=== PATIENT | male | born 1990 | race Caucasian/White ===

== ENCOUNTER → 2025-04-11 10:19 | Outpatient (BNVA) | payer OTHER, SELFPAY | PROVIDERS: PCP Nurse Practitioner Family; Visit Provider Nurse Practitioner Family | DX: R53.83 Other fatigue (principal) | CPT/HCPCS: 80053; 80061; 82306; 82607; 83735; 84443; 85025 ==

== ENCOUNTER 2025-05-04 05:53 | Day surgery (SDC) | payer OTHER, SELFPAY ==
[2025-05-04] VITALS (10 sets, daily range): BP systolic 96–128; BP diastolic 59–84; PULSE 58–69; RESP 16–20; TEMP 36.3–36.8; O2SAT 95–98; BMI 29.4
--- NOTE | 2025-05-04 06:47 | ANES.PREANE2 ---
Pre-Anesthetic Assessment Height/Weight: Height 1.78 m Weight 92.986 kg Temp Pulse Resp BP Pulse Ox O2 Del Method 98.3 F 67 17 128/84 98 Room Air 05/04/25 06:12 05/04/25 06:12 05/04/25 06:12 05/04/25 06:12 05/04/25 06:12 05/04/25 06:12 Operation Date: 05/04/25 07:00 Proposed Procedures p LEFT Open Inguinal Hernia Repair w/ Mesh [id number], K40.90(Left) - Taco Martinez MD Familial anesthetic complications: None Was Beta Joseph taken within 24 hours: N/A Was Clonidine taken within 24 hours: N/A Last intake: Intake Last Liquid Date 05/03/25 Last Liquid Time 20:00 Last Solid Date 05/03/25 Last Solid Time 20:00 Social No alcohol and No tobacco Exam alert, oriented x 3, clear to auscultation bilaterally and regular rate & rhythm Airway Mallampati: Class III Dentition: full Comments: Comments: FULL [place] Anesthetic Plan ASA status: 1 Anesthesia: General Risk of > 500 ml blood loss (7ml/kg in children): No Medications/Allergies Home Medications ?Medication ?Instructions ?Recorded ?Confirmed ?Last Taken ?Type No Known Home Medications 03/25/25 05/04/25 Unknown History Allergies Allergy/AdvReac Type Severity Reaction Status Date / Time No Known Allergies Allergy Verified 04/11/25 08:54 Current Medications Generic Name Dose Route Start Last Admin Trade Name Freq PRN Reason Stop Dose Admin Sodium Chloride 1,000 mls @ 30 mls/hr 05/04/25 06:15 05/04/25 06:27 Sodium Chloride 0.9% IV 05/05/25 06:14 30 mls/hr .Q24H JOSE Administration PFSH Anesthesia Surgical History History of mandibular surgery age 13 Social History Smoking and tobacco/nicotine status: current every day tobacco/nicotine user (floyd) Alcohol intake: never Substance/Drug Use: current Substance/Drug use frequency: daily
--- NOTE | 2025-05-04 07:00 | W.PM.OPSFHP ---
Same Day Surgery H&P Indication for Procedure/HPI DATE OF PROCEDURE: May 04, 2025 CHIEF COMPLAINT/INDICATIONFOR SURGICAL PROCEDURE: left inguinal hernia PREOP DIAGNOSIS: left inguinal hernia PLANNED PROCEDURE: Operation Date: 05/04/25 07:00 Proposed Procedures p LEFT Open Inguinal Hernia Repair w/ Mesh [id number], K40.90(Left) - Taco Martinez MD Medications/Allergies* Home Medications ?Medication ?Instructions ?Recorded ?Confirmed ?Type No Known Home Medications 03/25/25 05/04/25 History Allergies/Adverse Reactions Allergy/AdvReac Type Severity Reaction Status Date / Time No Known Allergies Allergy Verified 04/11/25 08:54 Current Medications: Generic Name Dose Route Start Last Admin Trade Name Freq PRN Reason Stop Dose Admin Sodium Chloride 1,000 mls @ 30 mls/hr 05/04/25 06:15 05/04/25 06:27 Sodium Chloride 0.9% IV 05/05/25 06:14 30 mls/hr .Q24H JOSE Administration Pertinent History/Comorbid Conditions* Surgical History (Updated 04/11/25 @ 09:46 by AALIYAH Hough) History of mandibular surgery age 13 Social History Smoking and tobacco/nicotine status: current every day tobacco/nicotine user (sarahuna) Alcohol intake: never Substance/Drug Use: current Substance/Drug use frequency: daily Pertinent Exam Findings alert, oriented x 3, clear to auscultation bilaterally, regular rate & rhythm and operative site marked abdomen soft, nt, nd left groin marked, + inguinal hernia Recommendations Risks and benefits of procedure reviewed and Patient/family agree to proceed Surgery/Procedure today Coding Level of Care Code Acute Code for Chg Olegario
[2025-05-04] MEDS: ceFAZolin 2,000 mg SDV 2000 MG IVP (07:13)
[2025-05-04] MEDS: BUPivacaine 0.25% INJ 10 mL INJECTION (07:53)
--- NOTE | 2025-05-04 08:20 | P.OP_ITS ---
Operative Report Date of procedure: May 04, 2025 Pre-op diagnosis: Left inguinal hernia Post-op diagnosis: same Post-op findings: Medium sized indirect inguinal hernia. Reduced hernia sac into the abdomen. Procedure done: Open inguinal hernia repair with mesh Implants: Plug and patch size medium Specimens removed/disposition: N/A Pathology: none sent Surgeon: Taco Martinez MD Basket Hand Braider: N/A Anesthesia: General Estimated blood loss (mL): 10 Complications: N/A Findings: Medium sized indirect inguinal hernia. Reduced hernia sac into the abdomen. Condition: stable Disposition: same day Brief History: 34-year-old male who presented with a left inguinal hernia that was symptomatic. Discussed risk and benefits and patient agreed to proceed with open inguinal hernia repair with mesh. Procedure: Patient brought to the OR and placed supine on the table. SCDs were placed and functioning. Preoperative ancef was administered. General anesthesia was induced. A godwin catheter was placed without any complications. The left groin was prepped and draped in the usual sterile fashion. Local infiltration at the surgical site was done using lidocaine/bupivacaine with epinephrine. A 5cm incision was carried out over the left inguinal canal. Tissue dissection was carried down to the external oblique fascia using electrocautery. The fascia was incised and the cord structures were identified. Cord structures were dissected of the hernia sac. I identified a medium indirect inguinal hernia. The hernia sac was dissected and reduced into the abdomen. The plug was placed at the site of the deep inguinal ring and the posterior wall of the inguinal canal was reinforced using a mesh patch. The plug was fixed using 2-0 ethibond to the cojoint ligament and inguinal ligament with interrupted sutures. The mesh patch was sutured to the cojoint tendon and the inguinal ligament using interrupted sutures with 2-0 ethibond. The external oblique fascia was closed using 3-0 vicryl. Skin was closed using 4-0 monocryl and surgical glue. Godwin was removed. The patient woke up from anesthesia and was transferred to PACU without any complications.
--- NOTE | 2025-05-04 14:07 | ANE.PACU2 ---
Inpatient post-anesthesia follow up: Airway intact: Yes Vital signs: Temperature 98.2 F Pulse Rate 63 Respiratory Rate 16 Blood Pressure 107/71 Pulse Oximetry 96 Oxygen Delivery Me thod Room Air Oxygen Flow Rate 6 Fraction of Inspir ed Oxygen Hydration adequate: Yes Nausea and vomiting: No Pain level: 1 Mental status: Baseline
== END 2025-05-04 09:20 | disposition home or self-care (01) ==
PROVIDERS: PCP Nurse Practitioner Family; Visit Provider Student in an Organized Health Care Education/Training Program
PROC: (CPT 49505; principal; 2025-05-04 07:00)
DX: K40.90 Unilateral inguinal hernia, without obstruction or gangrene, not specified as recurrent (principal); F12.90 Cannabis use, unspecified, uncomplicated
CPT/HCPCS: 49505; C1781; J0131; J0690; J1100; J1171; J1885; J2250; J2405; J2704; J3490; J7030; J9999